=== PATIENT | male | born 1970 | race African-American/Black ===

== ENCOUNTER → 2017-08-02 | Outpatient (CLI) | payer MEDICARE, OTHER, MEDICAID | END | disposition home or self-care (01) | LOC: US 15:00 | DX: N43.3 Hydrocele, unspecified (principal) | CPT/HCPCS: 76870 ==

== ENCOUNTER 2017-09-13 11:22 | Inpatient (IN) | payer MEDICARE, OTHER ==
[2017-09-13 12:45] LABS: ANION GAP 4 (6-14); BLOOD UREA NITROGEN 17 mg/dL (8-26); CALCIUM 8.8 mg/dL (8.5-10.1); CARBON DIOXIDE 28 mmol/L (21-32); CHLORIDE 106 mmol/L (98-107); CREATININE 0.9 mg/dL (0.7-1.3); GFR 108.5; GLUCOSE 123 mg/dL (70-99); POTASSIUM 4.4 mmol/L (3.5-5.1); SODIUM 138 mmol/L (136-145)
[2017-09-13] MEDS: IV NORMAL SALINE 1000ML BAG 1,000 ML IV ×3 (12:47→21:18)
[2017-09-13 12:48] LABS: ACETAMIN < 2 mcg/ml (10-30); ETHANOL < 10 mg/dL (0-10); SALIC < 2.8 mg/dL (2.8-20.0)
[2017-09-13 12:50] LABS: ALBUMIN 3.6 g/dL (3.4-5.0); ALK PHOS 67 U/L (46-116); ALT (SGPT) 19 U/L (16-63); AST (SGOT) 26 U/L (15-37); DIRECT BILIRUBIN 0.1 mg/dL (0.0-0.2); TOTAL BILIRUBIN 0.5 mg/dL (0.2-1.0); TOTAL PROTEIN 6.8 g/dL (6.4-8.2)
[2017-09-13 12:51] LABS: BASO % 0 % (0-3); EOS % 0 % (0-3); HEMATOCRIT 38.6 % (39.0-53.0); HEMOGLOBIN 12.8 g/dL (13.0-17.5); LYMPH # 0.5 x10^3/uL (1.0-4.8); LYMPH % 3 % (24-48); MEAN CORPUSCULAR HEMOGLOBIN 26 pg (25-35); MEAN CORPUSCULAR HGB CONC 33 g/dL (31-37); MEAN CORPUSCULAR VOLUME 77 fL (79-100); MONO # 0.8 x10^3/uL (0.0-1.1); MONO % 5 % (0-9); NEUT # 13.7 x10^3uL (1.8-7.7); NEUT % 91 % (31-73); PLATELET COUNT 152 x10^3/uL (140-400); RED BLOOD COUNT 4.99 x10^6/uL (4.30-5.70); RED CELL DISTRIBUTION WIDTH 15.6 % (11.5-14.5); WHITE BLOOD COUNT 14.9 x10^3/uL (4.0-11.0)
[2017-09-13 12:52] LABS: LACTIC ACID 2.5 mmol/L (0.4-2.0)
[2017-09-13 12:57] LABS: THYROID STIM HORMONE (TSH) 0.638 uIU/mL (0.358-3.74)
[2017-09-13 13:02] LABS: ADD MAN DIFF? YES
[2017-09-13 13:36] LABS: BILIRUBIN,URINE NEGATIVE (NEG); CLARITY,URINE CLEAR; COLOR,URINE YELLOW; GLUCOSE,URINE NEGATIVE (NEG); NITRITE,URINE NEGATIVE (NEG); PH,URINE 5.5; PROTEIN,URINE NEGATIVE (NEG-TRACE); UROBILINOGEN,URINE 0.2 mg/dL (0.2 mg/dL)
[2017-09-13 13:42] LABS: % BANDS 11 % (0-9); % LYMPHS 6 % (24-48); % MONOS 5 % (0-10); % SEGS 78 % (35-66)
[2017-09-13 13:43] LABS: BARBITURATES NEG (NEG); BENZODIAZEPINES NEG (NEG); CANNABINOIDS NEG (NEG); COCAINE NEG (NEG); METHADONE NEG (NEG); OPIATES NEG (NEG); PHENCYCLIDINE NEG (NEG)
[2017-09-13 13:44] LABS: AMPHETAMINE/METHAMPHETAMINE NEG (NEG); ETHANOL, URINE NEG (NEG); PLT ESTIMATE ADEQUATE (ADEQUATE)
[2017-09-13 13:47] LABS: BACTERIA,URINE 0 /HPF (0-FEW); HYALINE CASTS, URINE FEW /HPF; RBC,URINE 0 /HPF (0-2); SQUAMOUS EPITHELIAL CELL,UR FEW /LPF; WBC,URINE 0 /HPF (0-4)
[2017-09-13 14:08] LABS: PROCALCITONIN 0.25 ng/mL (0.00-0.10)
[2017-09-13] MEDS: IBUPROFEN 800 MG TABLET. PO (15:21)
[2017-09-13] MEDS: ACETAMINOPHEN 500 MG TABLET PO (15:22)
[2017-09-13 15:36] LABS: LACTIC ACID 2.5 mmol/L (0.4-2.0)
[2017-09-13] MEDS ORDERED: ACETAMINOPHEN 325 MG TABLET. PO (16:15)
[2017-09-13] MEDS ORDERED: PIP/TAZO PER PHARMACY MC (16:15)
[2017-09-13] MEDS ORDERED: ONDANSETRON PF 4 MG/2 ML VIAL. IV (16:15)
[2017-09-13] MEDS ORDERED: CONTRAST GIVEN. MC (16:30)
[2017-09-13 16:41] LABS: C-REACTIVE PROTEIN 9.6 mg/L (0-3.3)
[2017-09-13] MEDS: IOHEXOL 300 MG/ML 100ML VIAL. IV (16:43)
[2017-09-13 17:14] LABS: SEDIMENTATION RATE 2 (0-15)
[2017-09-13] MEDS: PIPERACILLIN/TAZOBACTAM 4.5 GM in IV NORMAL SALINE 100ML 100 ML IV (17:28)
[2017-09-13] MEDS: VANCOMYCIN PER PHARMACY MC ×3 (17:59→18:41)
[2017-09-13] MEDS: VANCOMYCIN 2 GM in IV NORMAL SALINE 500ML BAG 500 ML IV (18:08)
[2017-09-13] MEDS: LACTOBACILLUS RHAMNOSUS GG 1 CAPSULE. PO (21:18)
[2017-09-14] MEDS: IV NORMAL SALINE 1000ML BAG 1,000 ML IV ×2 (00:09→08:09)
[2017-09-14] MEDS: PIPERACILLIN/TAZOBACTAM 3.375 GM in IV NORMAL SALINE 50ML 50 ML IV ×2 (00:39→06:11)
[2017-09-14] MEDS: VANCOMYCIN 1 GM in IV NORMAL SALINE 250ML 250 ML IV (03:03)
[2017-09-14 04:29] LABS: ADD MAN DIFF? NO
[2017-09-14 04:34] LABS: BASO % 0 % (0-3); EOS # 0.1 x10^3/uL (0.0-0.7); EOS % 1 % (0-3); HEMATOCRIT 30.9 % (39.0-53.0); HEMOGLOBIN 10.6 g/dL (13.0-17.5); LYMPH # 0.6 x10^3/uL (1.0-4.8); LYMPH % 8 % (24-48); MEAN CORPUSCULAR HEMOGLOBIN 26 pg (25-35); MEAN CORPUSCULAR HGB CONC 34 g/dL (31-37); MEAN CORPUSCULAR VOLUME 77 fL (79-100); MONO # 0.6 x10^3/uL (0.0-1.1); MONO % 8 % (0-9); NEUT # 6.1 x10^3uL (1.8-7.7); NEUT % 83 % (31-73); PLATELET COUNT 121 x10^3/uL (140-400); RED BLOOD COUNT 4.04 x10^6/uL (4.30-5.70); RED CELL DISTRIBUTION WIDTH 15.3 % (11.5-14.5); WHITE BLOOD COUNT 7.4 x10^3/uL (4.0-11.0)
[2017-09-14 04:49] LABS: ANION GAP 6 (6-14); BLOOD UREA NITROGEN 17 mg/dL (8-26); CALCIUM 7.5 mg/dL (8.5-10.1); CARBON DIOXIDE 26 mmol/L (21-32); CHLORIDE 107 mmol/L (98-107); CREATININE 0.9 mg/dL (0.7-1.3); GFR 108.5; GLUCOSE 117 mg/dL (70-99); POTASSIUM 3.5 mmol/L (3.5-5.1); SODIUM 139 mmol/L (136-145)
[2017-09-14 04:59] LABS: LACTIC ACID 1.1 mmol/L (0.4-2.0)
[2017-09-14] MEDS: LACTOBACILLUS RHAMNOSUS GG 1 CAPSULE. PO (09:26)
== END 2017-09-14 11:56 | disposition home or self-care (01) | DRG 871 ==
LOC: ER 11:22 → 5 SOUTH 16:10
DX: A41.9 Sepsis, unspecified organism (principal); G93.40 Encephalopathy, unspecified; E87.2 Acidosis; R62.50 Unspecified lack of expected normal physiological development in childhood; Z82.49 Family history of ischemic heart disease and other diseases of the circulatory system
CPT/HCPCS: 36415; 71045; 74177; 80048; 80076; 80307; 80329; 81001; 83605; 84145; 84443; 85007; 85025; 85651; 86140; 87040; 93005; 96360; 96361; 99285; 99285-25; G0480; G6039; J1956; J2543; J3370; J7030; J7040; J7050; Q9967

== ENCOUNTER 2018-09-28 11:41 | Day surgery (SDC) | payer MEDICARE, MEDICAID ==
[~2018-09-28 11:41] MED LIST: ACET325T9 PO; BUPIVACAINE MPF 0.5% 30 ML VIAL. ONE; DOCU-109 PO; HYDROmorphone 2 MG/ML VIAL IV PRN; IV RINGERS,LACTATED 1000ML 1,000 ML IV SCH; LACT1CAP19 PO; LEVO500T59 PO; LIDOCAINE 1% PF 2 ML VIAL. ID PRN; MORPHINE SULFATE 2 MG/ML VIAL. IV PRN; MULT1TAB52 PO; OMEP20CA10 PO; ONDANSETRON PF 4 MG/2 ML VIAL. IV PRN; PROCHLORPERAZINE 10 MG/2 ML VIAL. IV PRN; fentaNYL PF VIAL 100 MCG/2 ML VIAL IV PRN
[2018-09-28] MEDS ORDERED: LIDOCAINE 2% PF 5 ML VIAL. ONE (12:49)
[2018-09-28] MEDS ORDERED: PROPOFOL 20 ML IV ONE (12:49)
[2018-09-28] MEDS ORDERED: DEXAMETHASONE SOD PHOS 4 MG/ML VIAL ONE (12:49)
[2018-09-28] MEDS ORDERED: ONDANSETRON PF 4 MG/2 ML VIAL. ONE (12:49)
[2018-09-28] MEDS ORDERED: SEVOFLURANE 61 TO 120 MINUTES. IH ONE (12:49)
[2018-09-28] MEDS ORDERED: KETOROLAC 30 MG/ML INJ FOR OR. INJ ONE (12:49)
[2018-09-28] MEDS ORDERED: fentaNYL PF VIAL 100 MCG/2 ML VIAL ONE (14:02)
--- NOTE | 2018-09-28 14:41 | PDOC4 ---
OPERATIVE NOTE Date: Date: Sep 28, 2018 Pre-Op Diagnosis: right hydrocele Post-Op Diagnosis: same Procedure Performed: right scrotal hydrocelectomy Surgeon: Serge Dias MD Anesthesia Type: general Blood Loss: 1 ml Specimans Obtained: none Findings: right hydrocele Complications: none Operative Note: see dictation SERGE DIAS MD Sep 28, 2018 14:41
--- NOTE | 2018-09-28 14:44 | DISCH ---
DISCHARGE INSTRUCTIONS Condition on Discharge Condition on Discharge: Stable Activity After Discharge Activity Instructions for Disc: Resume previous activity Diet after Discharge Diet after Discharge: Regular Wound Incision Care Wound/Incision Care: Change dressing, Other, see below (remove gauze / dressing in 2 days) Contacting the after DC Call your doctor for: Concerns you may have Follow-Up Follow up with: Dr. Dias in 4 weeks SERGE DIAS MD Sep 28, 2018 14:44
[2018-09-28 15:19] VITALS: BP 134/86
--- NOTE | 2018-09-28 16:41 | OP ---
DATE OF SURGERY: 09/28/2018 SURGEON: Serge Dias MD ASSISTANT OFFICE MANAGER: None. PREOPERATIVE DIAGNOSIS: Right hydrocele. POSTOPERATIVE DIAGNOSIS: Right hydrocele. PROCEDURE PERFORMED: Right scrotal hydrocelectomy. ANESTHESIA TYPE: General. INDICATIONS: This is a 48-year-old male with a bothersome and enlarging right hydrocele. After discussion of risks, benefits and alternatives, they agreed to the above procedure. Informed consent was obtained. DESCRIPTION OF PROCEDURE: The patient was taken to the operating room where general anesthesia was induced. He was placed in the supine position and sterilely prepped and draped. A timeout was performed. Local anesthetic was injected over the right side of the mid scrotum. A small incision was made. The subcutaneous tissues were divided with electrocautery. The testicle and hydrocele sac were delivered to the field. The hydrocele sac was opened and 160 mL of yellow fluid was drained. The hydrocele sac was further opened and then redundant portions of the hydrocele sac were excised. The remaining hydrocele sac edges were then brought behind the testicle and spermatic cord and sutured in place. The testicle was returned to the scrotum in the normal anatomic position. The wound was irrigated. The subcutaneous [place] wall of the scrotum was reapproximated with Vicryl suture. The skin of the scrotum was reapproximated with a chromic suture. The patient was then awakened and a scrotal support and dressing were applied and he was taken to the recovery room in stable condition. ESTIMATED BLOOD LOSS: 1 mL. COMPLICATIONS: None. SPECIMENS: None. SERGE DIAS MD DR: SAMY/nadine JOB#: [id number] / [id number]
== END 2018-09-28 15:30 | disposition home or self-care (01) ==
LOC: SURG 11:41
PROVIDERS: ATTEND Urology
DX: N43.3 Hydrocele, unspecified (principal)
CPT/HCPCS: 55040; J0696; J1100; J1885; J2001; J2405; J2704; J3490; J3010; A4461